=== PATIENT | female | born 1995 | race Caucasian/White ===

== ENCOUNTER 2016-12-12 20:43 | Emergency (ER) | payer SELFPAY ==
--- NOTE | 2016-12-12 21:17 | ERPHSYRPT ---
- History of Present Illness Time Seen by Provider: 12/12/16 21:11 Source: patient Exam Limitations: no limitations Patient Subjective Stated Complaint: pt c/o rash on her upper body and thighs. Triage Nursing Assessment: pt alert and oriented, answers questions approp. pt ambulatory with steady gait noted. respirations nonlabored with lungs cta. raised red rash to abd, back, arms, and thighs. pt reports burning and itching. Physician History: The patient is a 21-year-old female who has been staying with friends for the past week and a half and tonight comes in for evaluation of a red itchy rash on her upper body for the past 2 days. Yesterday it began with some mild redness. Tonight the itching became progressively worse. The redness turned into hives on her arms and chest. She denies any shortness of breath. She did not take any antihistamines. She did wash her clothes while she was here but she use the same laundry detergent and fabric softener as she has in the past. Her past medical history is unremarkable. Timing/Duration: yesterday Quality: itchy Severity: moderate Location: torso, extremities (upper) Possible Causes: no cause identified Associated Symptoms: denies symptoms Allergies/Adverse Reactions: No Known Drug Allergies Allergy (Unverified 12/12/16 21:11) Home Medications: Albuterol 8 gm Mdi Hfa [Ventolin Hfa MDI] 2 gm IH Q4H PRN PRN 12/12/16 [ History] Fexofenadine HCl [Corine] 180 mg PO DAILY 12/12/16 [History] Promethazine HCl 25 mg [Phenergan 25 mg] 25 mg PO Q6H PRN PRN 12/12/16 [ History] Hx Tetanus, Diphtheria Vaccination/Date Given: Yes Hx Influenza Vaccination/Date Given: No Hx Pneumococcal Vaccination/Date Given: No Immunizations Up to Date: Yes - Review of Systems Constitutional: No Fever, No Chills Eyes: No Symptoms Ears, Nose, & Throat: No Symptoms Respiratory: No Cough, No Dyspnea Cardiac: No Chest Pain, No Edema, No Syncope Abdominal/Gastrointestinal: No Abdominal Pain, No Nausea, No Vomiting, No Diarrhea Genitourinary Symptoms: No Dysuria Musculoskeletal: No Back Pain, No Neck Pain Skin: Rash Neurological: No Dizziness, No Focal Weakness, No Sensory Changes Psychological: No Symptoms Endocrine: No Symptoms Hematologic/Lymphatic: No Symptoms Immunological/Allergic: No Symptoms All Other Systems: Reviewed and Negative - Past Medical History Pertinent Past Medical History: No - Past Surgical History Past Surgical History: Yes - Social History Smoking Status: Current every day smoker How long have you smoked: 6yrs Exposure to second hand smoke: Yes Drug Use: none Patient Lives Alone: No - Female History Hx Last Menstrual Period: current - Nursing Vital Signs Nursing Vital Signs: Initial Vital Signs Temperature 97.9 F Temperature Source Oral Pulse Rate 91 Respiratory Rate 14 Blood Pressure [Right Arm] 119/79 Pain Intensity 0 - Physical Exam General Appearance: no apparent distress, alert Eye Exam: PERRL/EOMI, eyes nml inspection Ears, Nose, Throat Exam: normal ENT inspection, pharynx normal, moist mucous membranes Neck Exam: normal inspection, non-tender, supple, full range of motion Respiratory Exam: normal breath sounds, lungs clear, No respiratory distress Cardiovascular Exam: regular rate/rhythm, normal heart sounds Gastrointestinal/Abdomen Exam: soft, mass, No tenderness Pelvic Exam: not done Rectal Exam: not done Back Exam: normal inspection, normal range of motion, No CVA tenderness, No vertebral tenderness Extremity Exam: normal inspection, normal range of motion Neurologic Exam: alert, oriented x 3, cooperative, normal mood/affect, sensation nml, No motor deficits Skin Exam: rash (red rash on upper arms and chest. Rash on chest has apparent imprint of bra straps.) SpO2 Interpretation: normal SpO2: 97 Oxygen Delivery: Room Air Ordered Tests: Medication Summary Discontinued Medications Generic Name Dose Route Start Last Admin Trade Name Rosalio PRN Reason Stop Dose Admin Diphenhydramine HCl 50 mg 12/12/16 21:22 12/12/16 21:35 Benadryl 50 Mg/Ml IM 12/12/16 21:23 50 mg STAT ONE Administration Diphenhydramine HCl Confirm 12/12/16 21:34 Benadryl 50 Mg/Ml Administered 12/12/16 21:35 Dose 50 mg .ROUTE .STK-MED ONE Diphenhydramine HCl Confirm 12/12/16 21:39 Benadryl 50 Mg/Ml Administered 12/12/16 21:40 Dose 50 mg .ROUTE .STK-MED ONE - Progress Progress: improved Counseled pt/family regarding: diagnosis - Departure Time of Disposition: 22:05 Departure Disposition: Home Clinical Impression: Allergic reaction Condition: Stable Critical Care Time: No Additional Instructions: You have an allergic reaction to an unidentified substance. If the rash returns or worsens, take benadryl 50 mg every 2 to 4 hrs as needed.
[2016-12-12] MEDS ORDERED: BENADRYL 50 MG/ML IM ONE (21:22)
[2016-12-12] MEDS ORDERED: BENADRYL 50 MG/ML ONE ×2 (21:34→21:39)
[2016-12-12 22:05] VITALS: O2SAT 97
[2016-12-12 22:06] VITALS: BP 96/62; PULSE 74
== END 2016-12-12 22:17 | disposition home or self-care (01) ==
LOC: ED 20:43
DX: T78.40XA Allergy, unspecified, initial encounter (principal); R21 Rash and other nonspecific skin eruption
CPT/HCPCS: 96372; 99282; 99284; J1200